=== PATIENT | male | born 1995 | race Caucasian/White ===

== ENCOUNTER 2019-07-27 00:35 | Emergency (ER) | payer MEDICAID ==
[~2019-07-27] VITALS: Ht 182.9 cm; Wt 86.2 kg
[2019-07-27 00:41] VITALS: Ht 182.9 cm; Wt 86.2 kg
[2019-07-27 03:00] VITALS: BP 135/79
== END 2019-07-27 03:00 | disposition home or self-care (01) ==
LOC: ED 00:35
DX: S02.2XXA Fracture of nasal bones, initial encounter for closed fracture (principal); S50.312A Abrasion of left elbow, initial encounter; R68.84 Jaw pain; Y04.0XXA Assault by unarmed brawl or fight, initial encounter; Y93.89 Activity, other specified; Y92.89 Other specified places as the place of occurrence of the external cause; Y99.8 Other external cause status

== ENCOUNTER 2019-10-02 14:34 | Emergency (ER) | payer SELFPAY ==
[~2019-10-02] VITALS: Ht 177.8 cm; Wt 83.9 kg
[2019-10-02 14:41] VITALS: Ht 177.8 cm; Wt 83.9 kg
[2019-10-02 16:02] VITALS: BP 137/90
== END 2019-10-02 16:02 | disposition home or self-care (01) ==
LOC: ED 14:34
DX: S83.92XA Sprain of unspecified site of left knee, initial encounter (principal); X58.XXXA Exposure to other specified factors, initial encounter; Y93.89 Activity, other specified; Y92.89 Other specified places as the place of occurrence of the external cause; Y99.8 Other external cause status